=== PATIENT | male | born 1945 | race Caucasian/White ===

== ENCOUNTER → 2023-10-17 08:05 | Outpatient (REF) | payer MEDICARE, SELFPAY ==
[2023-10-17 08:48] LABS: % Eosinophils 3.4 % (0-6); % Immature Granulocytes 0.2 % (0-0.5); % Lymphocytes 24.3 % (20.5-51.1); % Monocytes 15.4 % (1.7-9.3); % Neutrophils 55.7 % (42.2-75.2); Absolute Basophils 0.1 10^3/uL (0-0.2); Absolute Eosinophils 0.2 10^3/uL (0-0.7); Absolute Lymphocytes 1.2 10^3/uL (1.2-3.4); Absolute Monocytes 0.8 10^3/uL (0.1-0.6); Absolute Neutrophils 2.7 10^3/uL (1.4-6.5); Hematocrit 31.6 % (39.0-52.0); Hemoglobin 10.2 g/dL (13.0-18.0); Mean Corp Hgb Conc. 32.3 g/dL (33.0-37.0); Mean Corpuscular Hgb 26.4 pg (27.0-31.0); Mean Corpuscular Volume 81.9 fL (80.0-94.0); Mean Platelet Volume 10.5 fL (7.4-10.4); Nucleated Red Blood Cells % 0 % (-); Platelet Count 173 10^3/uL (130-400); Red Blood Cell Count 3.86 10^6/uL (4.70-6.10); Red Cell Dist. Width 14.8 % (11.5-14.5); White Blood Cell Count 4.9 10^3/uL (4.8-10.8)
[2023-10-17 09:08] LABS: ALT (SGPT) 31 U/L (0-50); AST (SGOT) 29 U/L (17-59); Alkaline Phosphatase 82 U/L (38-126); Blood Urea Nitrogen 33 mg/dl (9-20); Calcium 9.4 mg/dl (8.4-10.2); Carbon Dioxide 32 mmol/L (22-30); Chloride 98 mmol/L (98-107); Glucose 97 mg/dl (70-99); Magnesium 2.1 mg/dl (1.6-2.3); Sodium 135 mmol/L (135-145); Total Bilirubin 0.7 mg/dl (0.2-1.3); Total Protein 6.7 g/dl (6.3-8.2); eGFR > 60.00
== END ==
LOC: REG 08:05
PROVIDERS: ATTENDING PHYSICIAN Nurse Practitioner
DX: I48.0 Paroxysmal atrial fibrillation (principal); I50.32 Chronic diastolic (congestive) heart failure
CPT/HCPCS: 36415; 80053; 83735; 85025

== ENCOUNTER → 2023-10-21 12:31 | Outpatient (REF) | payer MEDICARE, SELFPAY | LOC: RAD 12:31 | PROVIDERS: ATTENDING PHYSICIAN Internal Medicine Cardiovascular Disease; FAMILY PHYSICIAN Internal Medicine | DX: J90 Pleural effusion, not elsewhere classified (principal) | CPT/HCPCS: 71046 ==

== ENCOUNTER → 2023-10-23 10:38 | Outpatient (REF) | payer MEDICARE, SELFPAY ==
[2023-10-23 11:40] LABS: NT-proBNP 1380 pg/ml
[2023-10-23 12:25] LABS: Blood Urea Nitrogen 29 mg/dl (9-20); Calcium 9.4 mg/dl (8.4-10.2); Carbon Dioxide 31 mmol/L (22-30); Chloride 97 mmol/L (98-107); Glucose 101 mg/dl (70-99); Potassium 4.1 mmol/L (3.5-5.1); Sodium 134 mmol/L (135-145); eGFR > 60.00
== END ==
LOC: REG 10:38
PROVIDERS: ATTENDING PHYSICIAN Internal Medicine Cardiovascular Disease; FAMILY PHYSICIAN Internal Medicine
DX: I50.9 Heart failure, unspecified (principal)
CPT/HCPCS: 36415; 80048; 83880

== ENCOUNTER → 2023-11-12 11:39 | Outpatient (REF) | payer MEDICARE, SELFPAY ==
[2023-11-12 13:48] LABS: Blood Urea Nitrogen 33 mg/dl (9-20); Calcium 9.9 mg/dl (8.4-10.2); Carbon Dioxide 31 mmol/L (22-30); Chloride 97 mmol/L (98-107); Glucose 103 mg/dl (70-99); Sodium 135 mmol/L (135-145); eGFR > 60.00
[2023-11-12 13:53] LABS: Potassium 4.6 mmol/L (3.5-5.1)
== END ==
LOC: REG 11:39
PROVIDERS: ATTENDING PHYSICIAN Internal Medicine; FAMILY PHYSICIAN Internal Medicine
DX: I50.22 Chronic systolic (congestive) heart failure (principal)
CPT/HCPCS: 36415; 80048

== ENCOUNTER → 2023-11-18 10:11 | Outpatient (REF) | payer MEDICARE, SELFPAY ==
[2023-11-18 11:14] LABS: Blood Urea Nitrogen 37 mg/dl (9-20); Carbon Dioxide 31 mmol/L (22-30); Chloride 96 mmol/L (98-107); Glucose 94 mg/dl (70-99); Potassium 4.4 mmol/L (3.5-5.1); Sodium 137 mmol/L (135-145); eGFR > 60.00
[2023-11-21 01:15] LABS: Albumin 4.28 g/dL (3.75-5.01); Alpha 1 Globulin 0.35 g/dL (0.19-0.46); Alpha 2 Globulin 0.64 g/dL (0.48-1.05); Free Lambda Light Chains,Quant 38.59 mg/L (5.71-26.30); IgA 358 mg/dL (68-408); IgG 1181 mg/dL (768-1632); IgM 57 mg/dL (35-263); Immunofixation Electrophoresis IFE Done; Kappa/Lambda Fr Light Ratio 1.05 (0.26-1.65); Total Protein-Electrophoresis 7.3 g/dL (6.3-8.2)
== END ==
LOC: REG 10:11
PROVIDERS: ATTENDING PHYSICIAN Internal Medicine; FAMILY PHYSICIAN Internal Medicine
DX: I50.32 Chronic diastolic (congestive) heart failure (principal)
CPT/HCPCS: 36415; 80048; 82784; 83521; 84155; 84165; 86334

== ENCOUNTER → 2023-11-20 09:05 | Outpatient (REF) | payer MEDICARE, SELFPAY ==
[2023-11-22 15:18] LABS: 24 Hour Urine Total Volume 1450 mL; Total Protein, Urine 162 mg/d (<=150); Ur Free Lambda Excretion/day 12.15 mg/d; Urine Collection Length 24 hr; Urine Free Kappa Excretion/Day 90.78 mg/d; Urine Free Kappa Light Chains 62.61 mg/L (0.00-32.90); Urine Free Lambda Light Chains 8.38 mg/L (0.00-3.79)
== END ==
LOC: REG 09:05
PROVIDERS: ATTENDING PHYSICIAN Internal Medicine; FAMILY PHYSICIAN Internal Medicine
DX: I50.32 Chronic diastolic (congestive) heart failure (principal)
CPT/HCPCS: 81050; 83521; 84156; 86335

== ENCOUNTER → 2023-11-21 13:09 | Outpatient (REF) | payer MEDICARE, SELFPAY | LOC: HWRAD 13:09 | PROVIDERS: ATTENDING PHYSICIAN Internal Medicine Critical Care Medicine; FAMILY PHYSICIAN Internal Medicine | DX: J90 Pleural effusion, not elsewhere classified (principal); R93.89 Abnormal findings on diagnostic imaging of other specified body structures | CPT/HCPCS: 71250 ==

== ENCOUNTER → 2023-11-27 14:24 | Outpatient (REF) | payer MEDICARE, SELFPAY | LOC: RCS 14:24 | PROVIDERS: ATTENDING PHYSICIAN Internal Medicine; FAMILY PHYSICIAN Internal Medicine | DX: I25.10 Atherosclerotic heart disease of native coronary artery without angina pectoris (principal); I50.32 Chronic diastolic (congestive) heart failure; I34.0 Nonrheumatic mitral (valve) insufficiency | CPT/HCPCS: 93306; 93356 ==

== ENCOUNTER → 2023-12-10 10:29 | Outpatient (REF) | payer MEDICARE, SELFPAY | LOC: RAD 10:29 | PROVIDERS: ATTENDING PHYSICIAN Internal Medicine; FAMILY PHYSICIAN Internal Medicine | DX: I43 Cardiomyopathy in diseases classified elsewhere (principal) | CPT/HCPCS: 78803; A9538 ==

== ENCOUNTER → 2023-12-11 10:49 | Outpatient (REF) | payer MEDICARE, SELFPAY ==
[2023-12-11 12:19] LABS: Blood Urea Nitrogen 29 mg/dl (9-20); Calcium 10.3 mg/dl (8.4-10.2); Carbon Dioxide 30 mmol/L (22-30); Chloride 95 mmol/L (98-107); Glucose 83 mg/dl (70-99); Potassium 4.4 mmol/L (3.5-5.1); Sodium 136 mmol/L (135-145); eGFR > 60.00
== END ==
LOC: REG 10:49
PROVIDERS: ATTENDING PHYSICIAN Internal Medicine
DX: I50.32 Chronic diastolic (congestive) heart failure (principal)
CPT/HCPCS: 36415; 80048

== ENCOUNTER → 2024-03-16 13:18 | Outpatient (REF) | payer MEDICARE, SELFPAY ==
[2024-03-16 15:21] LABS: Microalbumin, Random Urine 6.7 mg/dl (0.6-1.7); Microalbumin/creatinine Ratio 209.4 mg/g
== END ==
LOC: REG 13:18
PROVIDERS: ATTENDING PHYSICIAN Internal Medicine
DX: R73.01 Impaired fasting glucose (principal); Z95.1 Presence of aortocoronary bypass graft; I25.10 Atherosclerotic heart disease of native coronary artery without angina pectoris; Z00.00 Encounter for general adult medical examination without abnormal findings; R06.09 Other forms of dyspnea; R94.30 Abnormal result of cardiovascular function study, unspecified; I25.810 Atherosclerosis of coronary artery bypass graft(s) without angina pectoris
CPT/HCPCS: 82043; 82570

== ENCOUNTER → 2024-05-21 11:08 | Outpatient (REF) | payer MEDICARE, SELFPAY ==
[2024-05-21 12:48] LABS: % Basophils 0.4 % (0-2); % Eosinophils 2.3 % (0-6); % Immature Granulocytes 0.2 % (0-0.5); % Lymphocytes 17.4 % (20.5-51.1); % Monocytes 12.8 % (1.7-9.3); % Neutrophils 66.9 % (42.2-75.2); Absolute Eosinophils 0.1 10^3/uL (0-0.7); Absolute Lymphocytes 0.9 10^3/uL (1.2-3.4); Absolute Monocytes 0.7 10^3/uL (0.1-0.6); Absolute Neutrophils 3.5 10^3/uL (1.4-6.5); Hematocrit 35.3 % (39.0-52.0); Hemoglobin 11.3 g/dL (13.0-18.0); Mean Corpuscular Hgb 27.3 pg (27.0-31.0); Mean Corpuscular Volume 85.3 fL (80.0-94.0); Mean Platelet Volume 10.2 fL (7.4-10.4); Nucleated Red Blood Cells % 0 % (-); Platelet Count 160 10^3/uL (130-400); Red Blood Cell Count 4.14 10^6/uL (4.70-6.10); Red Cell Dist. Width 18.5 % (11.5-14.5); White Blood Cell Count 5.2 10^3/uL (4.8-10.8)
[2024-05-21 13:31] LABS: NT-proBNP 1940 pg/ml
[2024-05-21 13:58] LABS: ALT (SGPT) 30 U/L (0-50); AST (SGOT) 33 U/L (17-59); Albumin 4.4 g/dl (3.5-5.0); Alkaline Phosphatase 83 U/L (38-126); Blood Urea Nitrogen 23 mg/dl (9-20); Carbon Dioxide 31 mmol/L (22-30); Chloride 98 mmol/L (98-107); Glucose 102 mg/dl (70-99); Magnesium 2.2 mg/dl (1.6-2.3); Potassium 4.4 mmol/L (3.5-5.1); Sodium 141 mmol/L (135-145); Total Bilirubin 0.9 mg/dl (0.2-1.3); Total Protein 7.1 g/dl (6.3-8.2); eGFR > 60.00
== END ==
LOC: REG 11:08
PROVIDERS: FAMILY PHYSICIAN Internal Medicine; OTHER PHYSICIAN Internal Medicine Cardiovascular Disease
DX: E85.82 Wild-type transthyretin-related (ATTR) amyloidosis (principal)
CPT/HCPCS: 36415; 80053; 83735; 83880; 85025

== ENCOUNTER → 2024-06-11 10:59 | Outpatient (REF) | payer MEDICARE, SELFPAY | LOC: CLAB 10:59 | PROVIDERS: ATTENDING PHYSICIAN Nurse Practitioner Primary Care | DX: R33.9 Retention of urine, unspecified (principal) | CPT/HCPCS: 36415; 87071; 87086 ==

== ENCOUNTER → 2024-07-09 08:06 | Outpatient (REF) | payer MEDICARE, SELFPAY | LOC: RAD 08:06 | PROVIDERS: ATTENDING PHYSICIAN Nurse Practitioner Primary Care; FAMILY PHYSICIAN Internal Medicine | DX: E85.82 Wild-type transthyretin-related (ATTR) amyloidosis (principal); N40.0 Benign prostatic hyperplasia without lower urinary tract symptoms; R33.9 Retention of urine, unspecified | CPT/HCPCS: 76770 ==

== ENCOUNTER → 2024-07-16 08:40 | Outpatient (REF) | payer MEDICARE, SELFPAY ==
[2024-07-16 11:11] LABS: HDL Cholesterol 74 mg/dl; LDL Cholesterol, Calculated 70 mg/dl; Total Cholesterol 154 mg/dl (50-199); Triglyceride 54 mg/dl (10-149); Very Low Density Lipoprotein 10 mg/dl (0-30)
== END ==
LOC: REG 08:40
PROVIDERS: ATTENDING PHYSICIAN Internal Medicine; FAMILY PHYSICIAN Internal Medicine
DX: E78.2 Mixed hyperlipidemia (principal); I25.10 Atherosclerotic heart disease of native coronary artery without angina pectoris
CPT/HCPCS: 36415; 80061

== ENCOUNTER → 2024-10-01 09:18 | Outpatient (REF) | payer MEDICARE, SELFPAY ==
[2024-10-01 10:07] LABS: % Basophils 0.8 % (0-2); % Eosinophils 2.2 % (0-6); % Immature Granulocytes 0.6 % (0-0.5); % Lymphocytes 18.4 % (20.5-51.1); % Monocytes 11.6 % (1.7-9.3); % Neutrophils 66.4 % (42.2-75.2); Absolute Eosinophils 0.1 10^3/uL (0-0.7); Absolute Lymphocytes 0.9 10^3/uL (1.2-3.4); Absolute Monocytes 0.6 10^3/uL (0.1-0.6); Absolute Neutrophils 3.3 10^3/uL (1.4-6.5); Hematocrit 35.3 % (39.0-52.0); Hemoglobin 11.4 g/dL (13.0-18.0); Mean Corp Hgb Conc. 32.3 g/dL (33.0-37.0); Mean Corpuscular Hgb 30.4 pg (27.0-31.0); Mean Corpuscular Volume 94.1 fL (80.0-94.0); Mean Platelet Volume 8.8 fL (7.4-10.4); Nucleated Red Blood Cells % 0 % (-); Platelet Count 174 10^3/uL (130-400); Red Blood Cell Count 3.75 10^6/uL (4.70-6.10); Red Cell Dist. Width 15.3 % (11.5-14.5)
[2024-10-01 10:26] LABS: ALT (SGPT) 19 U/L (0-50); AST (SGOT) 26 U/L (17-59); Albumin 4.3 g/dl (3.5-5.0); Alkaline Phosphatase 63 U/L (38-126); Blood Urea Nitrogen 23 mg/dl (9-20); Calcium 9.7 mg/dl (8.4-10.2); Carbon Dioxide 34 mmol/L (22-30); Chloride 99 mmol/L (98-107); Glucose 97 mg/dl (70-99); HDL Cholesterol 65 mg/dl; LDL Cholesterol, Calculated 67 mg/dl; Potassium 4.7 mmol/L (3.5-5.1); Sodium 139 mmol/L (135-145); Total Bilirubin 0.4 mg/dl (0.2-1.3); Total Cholesterol 142 mg/dl (50-199); Total Protein 6.9 g/dl (6.3-8.2); Triglyceride 54 mg/dl (10-149); Very Low Density Lipoprotein 10 mg/dl (0-30); eGFR > 60.00
[2024-10-01 11:03] LABS: PSA, Total - Screen 0.91 ng/ml (0.0-4.0); TSH 3.35 uIU/ml (0.47-4.68)
== END ==
LOC: REG 09:18
PROVIDERS: ATTENDING PHYSICIAN Internal Medicine
DX: R73.01 Impaired fasting glucose (principal); N40.0 Benign prostatic hyperplasia without lower urinary tract symptoms; E78.2 Mixed hyperlipidemia; I48.0 Paroxysmal atrial fibrillation
CPT/HCPCS: 36415; 80053; 80061; 83036; 84443; 85025; G0103

== ENCOUNTER → 2024-12-29 08:43 | Outpatient (REF) | payer MEDICARE, SELFPAY ==
[2024-12-29 12:01] LABS: ALT (SGPT) 21 U/L (0-50); AST (SGOT) 24 U/L (17-59); HDL Cholesterol 67 mg/dl; LDL Cholesterol, Calculated 69 mg/dl; Total Cholesterol 148 mg/dl (50-199); Triglyceride 62 mg/dl (10-149); Very Low Density Lipoprotein 12 mg/dl (0-30)
== END ==
LOC: REG 08:43
PROVIDERS: ATTENDING PHYSICIAN Internal Medicine; FAMILY PHYSICIAN Internal Medicine
DX: I50.32 Chronic diastolic (congestive) heart failure (principal)
CPT/HCPCS: 36415; 80061; 84450; 84460

== ENCOUNTER → 2025-01-24 08:57 | Outpatient (REF) | payer MEDICARE, SELFPAY ==
[2025-01-24 09:58] LABS: % Basophils 0.8 % (0-2); % Eosinophils 2.4 % (0-6); % Immature Granulocytes 0.2 % (0-0.5); % Lymphocytes 17.9 % (20.5-51.1); % Monocytes 11.1 % (1.7-9.3); % Neutrophils 67.6 % (42.2-75.2); Absolute Eosinophils 0.1 10^3/uL (0-0.7); Absolute Monocytes 0.6 10^3/uL (0.1-0.6); Absolute Neutrophils 3.6 10^3/uL (1.4-6.5); Hematocrit 35.8 % (39.0-52.0); Hemoglobin 11.9 g/dL (13.0-18.0); Mean Corp Hgb Conc. 33.2 g/dL (33.0-37.0); Mean Corpuscular Hgb 31.5 pg (27.0-31.0); Mean Corpuscular Volume 94.7 fL (80.0-94.0); Mean Platelet Volume 9.2 fL (7.4-10.4); Nucleated Red Blood Cells % 0 % (-); Platelet Count 156 10^3/uL (130-400); Red Blood Cell Count 3.78 10^6/uL (4.70-6.10); White Blood Cell Count 5.3 10^3/uL (4.8-10.8)
[2025-01-24 10:24] LABS: NT-proBNP 1690 pg/ml; Troponin I 0.039 ng/ml
[2025-01-24 10:26] LABS: ALT (SGPT) 45 U/L (0-50); AST (SGOT) 37 U/L (17-59); Albumin 4.5 g/dl (3.5-5.0); Alkaline Phosphatase 49 U/L (38-126); Blood Urea Nitrogen 26 mg/dl (9-20); Calcium 9.7 mg/dl (8.4-10.2); Carbon Dioxide 29 mmol/L (22-30); Chloride 103 mmol/L (98-107); Glucose 100 mg/dl (70-99); Magnesium 2.5 mg/dl (1.6-2.3); Potassium 4.4 mmol/L (3.5-5.1); Sodium 140 mmol/L (135-145); Total Bilirubin 0.7 mg/dl (0.2-1.3); Total Protein 7.1 g/dl (6.3-8.2); eGFR 56.23
== END ==
LOC: REG 08:57
PROVIDERS: ATTENDING PHYSICIAN Internal Medicine Cardiovascular Disease; FAMILY PHYSICIAN Internal Medicine
DX: I48.19 Other persistent atrial fibrillation (principal); I50.32 Chronic diastolic (congestive) heart failure; Z95.1 Presence of aortocoronary bypass graft; I25.10 Atherosclerotic heart disease of native coronary artery without angina pectoris
CPT/HCPCS: 36415; 80053; 83735; 83880; 84484; 85025

== ENCOUNTER → 2025-06-08 08:38 | Outpatient (REF) | payer MEDICARE, SELFPAY ==
[2025-06-08 09:23] LABS: Hematocrit 35.7 % (39.0-52.0); Hemoglobin 11.8 g/dL (13.0-18.0); Mean Corp Hgb Conc. 33.1 g/dL (33.0-37.0); Mean Corpuscular Volume 93.0 fL (80.0-94.0); Nucleated Red Blood Cells % 0 % (-); Platelet Count 178 10^3/uL (130-400); Red Cell Dist. Width 12.8 % (11.5-14.5)
[2025-06-08 10:21] LABS: ALT (SGPT) 53 U/L (0-50); AST (SGOT) 46 U/L (17-59); Albumin 4.5 g/dl (3.5-5.0); Alkaline Phosphatase 55 U/L (38-126); Blood Urea Nitrogen 25 mg/dl (9-20); Calcium 10.0 mg/dl (8.4-10.2); Carbon Dioxide 30 mmol/L (22-30); Chloride 99 mmol/L (98-107); Glucose 87 mg/dl (70-99); HDL Cholesterol 48 mg/dl; LDL Cholesterol, Calculated 54 mg/dl; Potassium 4.4 mmol/L (3.5-5.1); Sodium 136 mmol/L (135-145); Total Protein 7.7 g/dl (6.3-8.2); Very Low Density Lipoprotein 11 mg/dl (0-30); eGFR 51.13
[2025-06-08 10:30] LABS: Glycohemoglobin (HgbA1c) 5.9 % (4.0-5.6)
== END ==
LOC: REG 08:38
PROVIDERS: ATTENDING PHYSICIAN Internal Medicine; OTHER PHYSICIAN Internal Medicine; REFERRING PHYSICIAN Internal Medicine Cardiovascular Disease
DX: R73.01 Impaired fasting glucose (principal); E85.82 Wild-type transthyretin-related (ATTR) amyloidosis; D64.9 Anemia, unspecified; I50.32 Chronic diastolic (congestive) heart failure; E78.2 Mixed hyperlipidemia
CPT/HCPCS: 36415; 80053; 80061; 83036; 85025

== ENCOUNTER → 2025-08-03 09:46 | Outpatient (REF) | payer MEDICARE, SELFPAY ==
[2025-08-03 10:56] LABS: Hematocrit 34.3 % (39.0-52.0); Hemoglobin 11.2 g/dL (13.0-18.0); Mean Corp Hgb Conc. 32.7 g/dL (33.0-37.0); Mean Corpuscular Volume 93.5 fL (80.0-94.0); Nucleated Red Blood Cells % 0 % (-); Platelet Count 159 10^3/uL (130-400); Red Cell Dist. Width 13.3 % (11.5-14.5)
[2025-08-03 11:11] LABS: ALT (SGPT) 47 U/L (0-50); AST (SGOT) 36 U/L (17-59); Albumin 4.3 g/dl (3.5-5.0); Alkaline Phosphatase 50 U/L (38-126); Blood Urea Nitrogen 19 mg/dl (9-20); Calcium 9.6 mg/dl (8.4-10.2); Carbon Dioxide 33 mmol/L (22-30); Chloride 97 mmol/L (98-107); Glucose 89 mg/dl (70-99); Potassium 4.2 mmol/L (3.5-5.1); Sodium 135 mmol/L (135-145); Total Protein 7.3 g/dl (6.3-8.2); eGFR > 60.00
== END ==
LOC: REG 09:46
PROVIDERS: ATTENDING PHYSICIAN Internal Medicine; FAMILY PHYSICIAN Internal Medicine
DX: I25.10 Atherosclerotic heart disease of native coronary artery without angina pectoris (principal); I48.0 Paroxysmal atrial fibrillation; R06.09 Other forms of dyspnea; Z95.1 Presence of aortocoronary bypass graft; Z95.0 Presence of cardiac pacemaker
CPT/HCPCS: 36415; 80053; 85025

== ENCOUNTER 2025-08-11 06:33 | Day surgery (SDC) | payer MEDICARE, SELFPAY ==
[2025-08-11] VITALS (11 sets, daily range): BP systolic 102–142; BP diastolic 49–68; BMI 24.2
[2025-08-11] MEDS: NSS 217 ML IV (07:21)
[2025-08-11] MEDS: NSS 1000 IV (10:22)
--- NOTE | 2025-08-11 12:46 | ITS.CL.CATH ---
[facility] - Catheterization
Cardiac Catheterization
Procedure Report:
CARDIAC CATHETERIZATION REPORT
Date of Procedure: 08/11/2025
Referring: Jan Murray M.D., Ph.D.
Indication: Worsening cardiomyopathy, known CAD and cardiac amyloidosis.
PROCEDURE:
1. Right heart catheterization.
2. Coronary angiography.
3. Left heart catheterization.
4. Evaluation of ventricular interdependence.
5. Aortography.
A total of 37 minutes of procedural/moderate sedation was utilized. An independent medical records custodian was present to assist with and help manage the patient's level of consciousness and physiologic status.
ACCESS:
1. 6 Danish left radial artery using a modified Seldinger technique.
2. 5 Danish right antecubital vein using a previously placed IV.
CATHETERS:
1. 5 Danish balloon wedge.
2. 5 Danish ADRIANA.
3. 5 Danish JL 4.
4. 5 Danish JR4.
5. 5 Danish multipurpose.
6. 5 Danish AL-1.
7. 5 Danish straight pigtail.
8. 5 Danish AR-1.
HEMODYNAMIC DATA
Weight (kg): 72.1
AO (s/d/x, mmHg): 96/58/73
LV (s/x, mmHg): 99/15
PCWP (a/v/x, mmHg): /
PA (s/d/x, mmHg): 36/
RV (s/x, mmHg): 36/15
RA (a/v/x, mmHg):
SVC SvO2 (%): 68.0
IVC SvO2 (%): Not obtained.
RA SvO2 (%): Not obtained.
RV SvO2 (%): Not obtained.
PA SvO2 (%): 64.7
SaO2 (%): 97.4
Hbg (g/dL): 10.3
JAMAL
CO (L/min): 5.06
CI (L/min/m2): 2.73
Thermodilution
CO (L/min): Not performed.
CI (L/min/m2): Not performed.
TPG (mmHg): 8
PVR (Higgins Units): 1.58
SVR (dynes*seconds*cm^-5): 917
AVO2 Diff (Volume %): 4.58
Cardiac Power Output (king): 0.82 (MAP * CO)/451 (normal 0.5 - 0.7; 0.4 - 0.6 in the elderly)
Cardiac Power Index (king/m2): 0.44 (MAP * CI)/451
Elizabeth: 1.33 (PAs-PAd)/RA
AV gradient (x, mmHg): None.
AV area (cm2): Normal.
MV gradient (x, mmHg): Not obtained.
MV area (cm2): Not obtained.
LEFT VENTRICULOGRAPHY: Not performed.
AORTOGRAPHY: Performed in an IMELDA projection. Normal aortic root, ascending aorta, aortic arch and descending thoracic aorta without obvious plaque or evidence of dissection. There is trace to mild aortic valve insufficiency. Aortography was not
able to visualize the SVG to distal RCA.
CORONARY ANGIOGRAPHY
Dominance: Right.
Left Main: Normal size, bifurcating vessel. There is a long taper of the left main coronary artery, reaching a zenith of 60-70% at its terminus.
LAD: Normal size vessel giving rise to several small diagonals. A patent stent is visible in the proximal vessel. There is a 90% ISR lesion in the proximal margin of the stent followed by 60-70% ISR within the remainder of the stent. The
mid/distal LAD is supplied by patent MEDELLIN graft.
Ramus: Congenitally absent.
Circumflex: Normal size, nondominant vessel giving rise to 1 large obtuse marginal which subsequently bifurcates into a small lower branch and a much larger upper branch which supplies the majority of the lateral wall. The proximal circumflex
is severely tortuous with a 70-80% lesion. The obtuse marginal is supplied by a patent vein graft.
RCA: Normal size, dominant vessel with a 50% lesion in the mid vessel, luminal irregularities in the distal vessel immediately after the crux and a 50% lesion in the distal vessel as it approaches the RPDA.
BYPASS GRAFT ANGIOGRAPHY
MEDELLIN to LAD: Normal size graft with end-to-side anastomosis to the mid LAD. There is no evidence of stenosis or graft degeneration.
SVG to OM1: Normal size graft with end-to-side anastomosis to the first obtuse marginal upper branch. There is no evidence of stenosis or graft degeneration.
SVG to dRCA: Graft could not be located even with nonselective aortography. Presumed occluded at its origin.
INTERVENTIONS
None.
Closure Device: Vascular band for the left radial artery, manual pressure for the right antecubital vein.
Radiation dose (mGy): 706.88
DAP (cm2.Gy): 63.1747
Fluoroscopy time (minutes): 15.2
CONCLUSIONS:
1. Right dominant circulation with a 50% lesion in the mid RCA followed by luminal irregularities in the RCA after the crux and a 50% lesion in the distal RCA as it approaches the RPDA, a 60-70% tapering lesion at the terminus of the left main
coronary artery, and 90% ISR lesion of the proximal margin of the proximal LAD stent followed by diffuse 60-70% ISR within the remainder of the stent and a severely tortuous nondominant circumflex with a 70-80% lesion in its proximal margin, status
post prior bypass (patent MEDELLIN to LAD, patent SVG to OM1, presumed occluded SVG to distal RCA).
2. Mildly elevated filling pressures (LVEDP = 15 mmHg, PCWP = 15 mmHg at 72.1 kg).
3. Normal cardiac performance indices (cardiac index = 2.73 L/min/m�, a VO2 difference = 4.58 volume%, cardiac power output = 0.82 W, Elizabeth = 1.33).
4. Normal pulmonary pressure.
5. No obvious ischemic source of recent decrease in left ventricular systolic function. I suspect that the SVG to RCA graft has closed due to moderate disease in the RCA that is likely nonobstructive.
6. Simultaneous LV/PA and LV/RV tracings revealed concordance without obvious dip and plateau.
RECOMMENDATIONS:
1. Expectant management after cardiac catheterization via left radial and right antecubital approach.
2. Limited weight bearing on the left wrist for one week.
3. Continue OMT/GDMT as hemodynamics will tolerate.
4. Continue aggressive secondary prevention with high-dose, high potency statin.
5. Antithrombotic therapy with apixaban.
6. Stable for outpatient follow-up.
Copy to: Jan Murray M.D., Ph.D., Christopher Riggs.Shabnam, Tanvi Lovelace M.D.
Eyal Diaz DO, FACC, FACP
== END 2025-08-11 13:00 | disposition home or self-care (01) ==
LOC: CATH 06:33
PROVIDERS: ATTENDING PHYSICIAN Internal Medicine Cardiovascular Disease; FAMILY PHYSICIAN Internal Medicine; OTHER PHYSICIAN Internal Medicine
DX: I25.10 Atherosclerotic heart disease of native coronary artery without angina pectoris (principal); I43 Cardiomyopathy in diseases classified elsewhere; E85.4 Organ-limited amyloidosis; T82.855A Stenosis of coronary artery stent, initial encounter; Y83.1 Surgical operation with implant of artificial internal device as the cause of abnormal reaction of the patient, or of later complication, without mention of misadventure at the time of the procedure; Z79.02 Long term (current) use of antithrombotics/antiplatelets; Z79.82 Long term (current) use of aspirin; Z79.899 Other long term (current) drug therapy
CPT/HCPCS: 99152; 99153; 93461; 93567; C1769; C1894; Q9967